=== PATIENT | female | born 2000 ===

== ENCOUNTER 2025-03-01 17:23 | Inpatient (IN) | payer OTHER ==
[2025-03-01] VITALS (8 sets, daily range): BP systolic 96–133; BP diastolic 52–80
[~2025-03-01] VITALS: Ht 170.2 cm; Wt 69.2 kg
[2025-03-01 17:36] LABS: Calcium, Ionized (POC) 1.26 mmol/L (1.10-1.46); Chloride (POC) 108 mmol/L (98-108); Creatinine (POC) 0.9 mg/dL (0.6-1.0); Glucose (ISTAT POC) >700 mg/dL (70-99); Hemoglobin (POC) 16.7 g/dL (12.0-16.0); Potassium (POC) 6.2 mmol/L (3.5-5.5); Sodium (POC) 134 mmol/L (135-148); Total CO2 (POC) 11 mmol/L (21-32)
[2025-03-01] MEDS ORDERED: INSULIN GL100 UNIT/2 SQ (17:39)
[2025-03-01] MEDS ORDERED: INSULIN LI100 UNIT/6 (17:39)
[2025-03-01] MEDS ORDERED: Insulin Human Regular 100 UNIT in NS 100 ML IV SCH (17:40)
[2025-03-01] MEDS ORDERED: NS 1,000 ML IV SCH (17:40)
[2025-03-01 17:43] LABS: Base Excess Venous -22.3 mmol/L; Bicarbonate Venous 10.4 mmol/L (24.0-30.0); PCO2 Venous 25.9 mmHg (38-42); pH Blood Venous 7.08 (7.34-7.37)
[2025-03-01 17:45] LABS: BASOPHILS ABSOLUTE AUTO 0.08 K/mm3 (0.00-0.23); BASOPHILS PERCENT AUTO 0 % (0-2); EOSINOPHILS PERCENT AUTO 0 % (0-6); Hemoglobin 15.9 g/dL (11.5-16.0); IMMATURE GRAN ABSOLUTE AUTO 0.21 K/mm3 (0.00-0.10); IMMATURE GRAN PERCENT AUTO 1 % (0-1); LYMPHOCYTES ABSOLUTE AUTO 0.58 K/mm3 (0.84-5.20); LYMPHOCYTES PERCENT AUTO 3 % (21-46); MONOCYTES ABSOLUTE AUTO 0.75 K/mm3 (0.16-1.47); MONOCYTES PERCENT AUTO 4 % (4-13); Mean Corpuscular HGB 30.4 pg (26.0-34.0); Mean Corpuscular HGB Conc 33.8 g/dL (31.5-36.5); Mean Corpuscular Volume 90 fL (80-100); Mean Platelet Volume 10.6 fL (9.1-12.4); NEUTROPHILS ABSOLUTE AUTO 17.84 K/mm3 (1.96-9.15); NEUTROPHILS PERCENT AUTO 92 % (41-73); Platelet Count 296 K/mm3 (150-400); RDW Coefficient Variation 12.3 % (11.7-14.2); RDW Standard Deviation 40.5 fL (35.1-46.3); Red Blood Cell Count 5.23 M/mm3 (3.80-5.20); White Blood Cell Count 19.46 K/mm3 (4.00-11.30)
[2025-03-01] MEDS ORDERED: Ondansetron HCl 2 MG / ML 2ML Vial IV ONE (17:50)
[2025-03-01 17:58] LABS: Magnesium, Blood 2.5 mg/dL (1.6-2.4); Phosphorus, Blood 7.2 mg/dL (2.5-4.9)
[2025-03-01 18:02] LABS: Source, Urine Clean Catch
[2025-03-01 18:07] LABS: Bilirubin, Urine Neg (Neg); Blood, Urine Neg (Neg); Glucose Qualitative, Urine 4+ (Neg); Ketones, Urine 4+ (Neg); Leukocyte Esterase, Urine Neg (Neg); Nitrite, Urine Neg (Neg); Protein, Urine 1+ (Neg); Urobilinogen, Urine NORM (Normal)
[2025-03-01 18:12] LABS: Color, Urine Pale Yellow (P-Yellow)
[2025-03-01 18:13] LABS: Appearance, Urine Hazy (Clear)
[2025-03-01 18:14] LABS: Bacteria Rare /hpf; Red Blood Cells, Urine 0-2 /hpf (0-2); Squamous Epithelial Cells Rare /hpf (Few); White Blood Cells, Urine 0-2 /hpf (0-5); Yeast/Fungi Urine Rare /hpf
[2025-03-01 18:16] LABS: Albumin, Blood 4.5 g/dL (3.4-5.0); Albumin/Globulin Ratio 1.3 (0.8-1.8); Bilirubin, Total 0.8 mg/dL (0.1-1.0); Bun/Creatinine Ratio 29.1 (12.0-20.0); Creatinine, Blood 0.76 mg/dL (0.40-1.00); Globulin, Blood 3.5 g/dL (2.2-4.0); Potassium, Blood 6.1 mmol/L (3.5-5.5)
[2025-03-01 18:38] LABS: Beta-hydroxybutyrate 72.7 mg/dL (0.2-2.8)
[2025-03-01] MEDS ORDERED: Metoclopramide HCl 5MG / ML 2ML Vial IV PRN (18:40)
[2025-03-01] MEDS ORDERED: Ondansetron HCl 2 MG / ML 2ML Vial IV PRN (18:45)
[2025-03-01] MEDS ORDERED: Lactated Ringer's 1,000 ML IV SCH ×2 (18:45→22:00)
[2025-03-01] MEDS ORDERED: Dextrose 50% 50 ML Syringe IV PRN (18:45)
[2025-03-01] MEDS ORDERED: Metoclopramide HCl 5MG / ML 2ML Vial IV ONE (19:00)
[2025-03-01 19:42] LABS: Glucose, Blood 607 mg/dL (70-99)
[2025-03-01 20:40] LABS: U Amphetamine Screen Not Detected; U Barbituate Screen Not Detected; U Benzodiazapine Screen Not Detected; U Buprenorphine Screen Not Detected; U Cannabinoids Screen DETECTED; U Cocaine Screen Not Detected; U Methadone Screen Not Detected; U Methamphetamine Screen Not Detected; U Opiates Screen Not Detected; U Oxycodone Screen Not Detected; U Phencyclidine Screen Not Detected
[2025-03-01] MEDS ORDERED: Acetaminophen 500 MG Tab PO PRN (21:40)
[2025-03-01 21:44] LABS: Bun/Creatinine Ratio 30.1 (12.0-20.0); Calcium, Blood 8.8 mg/dL (8.5-10.1); Creatinine, Blood 0.73 mg/dL (0.40-1.00); Potassium, Blood 4.9 mmol/L (3.5-5.5)
[2025-03-02] VITALS (22 sets, daily range): BP systolic 91–120; BP diastolic 52–91
[2025-03-02] MEDS ORDERED: [UNRECOGNIZED DRUG - OTHER] IV SCH (00:30)
[2025-03-02] MEDS ORDERED: DEXTROSE IV SCH (00:30)
[2025-03-02 01:41] LABS: Bun/Creatinine Ratio 23.9 (12.0-20.0); Calcium, Blood 8.8 mg/dL (8.5-10.1); Creatinine, Blood 0.71 mg/dL (0.40-1.00); Potassium, Blood 4.6 mmol/L (3.5-5.5)
--- NOTE | 2025-03-02 05:16 | NUR ---
SHIFT SUMMARY PT A/OX4, ABLE TO MAKE NEEDS KNOWN. USES CALL LIGHT APPROPRIATLY. ON ROOM AIR, SATS > 94%, DENIES SOB. ON SCIENTIFIC MANAGER, HR 70-80'S, BP SOFT BUT MAPS >65. PT ABLE TO TOLERATE PO INTAKE W/O N/V. UP TO TOILET W/ SBA FOR CORD MANAGEMENT. INSULIN INFUSING AT 9U/H TO LAC IV. NO ACUTE EVENTS, CALL LIGHT IN REACH.
[2025-03-02 05:19] LABS: Hemoglobin 12.8 g/dL (11.5-16.0); Mean Corpuscular HGB 30.9 pg (26.0-34.0); Mean Corpuscular HGB Conc 35.6 g/dL (31.5-36.5); Mean Corpuscular Volume 87 fL (80-100); Mean Platelet Volume 9.9 fL (9.1-12.4); Platelet Count 259 K/mm3 (150-400); RDW Coefficient Variation 12.6 % (11.7-14.2); Red Blood Cell Count 4.14 M/mm3 (3.80-5.20); White Blood Cell Count 20.01 K/mm3 (4.00-11.30)
[2025-03-02 05:43] LABS: Bun/Creatinine Ratio 25.5 (12.0-20.0); Calcium, Blood 8.4 mg/dL (8.5-10.1); Creatinine, Blood 0.59 mg/dL (0.40-1.00); Potassium, Blood 3.8 mmol/L (3.5-5.5)
[2025-03-02] MEDS ORDERED: Potassium Chloride 20 MEQ TabCR PO ONE ×2 (05:55→22:40)
--- NOTE | 2025-03-02 07:15 | NUR ---
ASSUMPTION OF CARE: ASSUMED CARE OF PATIENT. PATIENT SLEEPING; EASILY WOKEN WITH VERBAL STIMULI. DENIES NAUSEA/VOMITING AT THIS TIME. TOLERATING WATER AND ICE. VITALS ARE STABLE WITH MAPS >65. STABLE ON ROOM AIR. INSULIN GTT INFUSING AT 6.8 UNITS/HR. D5 1/2NS INFUSING AT 125 ML/HR. DENIES NEEDS AT THIS TIME.
[2025-03-02] MEDS ORDERED: Enoxaparin 40 MG/0.4 ML SYR SC SCH (09:00)
[2025-03-02 09:57] LABS: Bun/Creatinine Ratio 28.2 (12.0-20.0); Calcium, Blood 8.6 mg/dL (8.5-10.1); Creatinine, Blood 0.5 mg/dL (0.40-1.00); Potassium, Blood 3.9 mmol/L (3.5-5.5)
[2025-03-02] MEDS ORDERED: Insulin Glargine-Yfgn 100 Unit/mL 3 ML SYR SC ONE ×2 (11:00→22:10)
[2025-03-02] MEDS ORDERED: NS 1,000 ML IV ONE (12:33)
[2025-03-02] MEDS ORDERED: NS 1,000 ML IV SCH (12:50)
[2025-03-02 14:27] LABS: Bun/Creatinine Ratio 24.8 (12.0-20.0); Calcium, Blood 8.4 mg/dL (8.5-10.1); Creatinine, Blood 0.56 mg/dL (0.40-1.00)
[2025-03-02] MEDS ORDERED: Nicotine 7 MG PATCH TOP SCH (16:05)
[2025-03-02 17:28] LABS: Bun/Creatinine Ratio 24.4 (12.0-20.0); Calcium, Blood 8.5 mg/dL (8.5-10.1); Creatinine, Blood 0.57 mg/dL (0.40-1.00); Potassium, Blood 3.8 mmol/L (3.5-5.5)
--- NOTE | 2025-03-02 19:28 | NUR ---
SHIFT SUMMARY: NEURO: PATIENT ALERT AND ORIENTED X4. PATIENT STABLE ON FEET. DENIES NUMBNESS/TINGLING. PATIENT UP TO THE CHAIR FOR THE AFTERNOON. CARDIAC: PATIENTS VITALS STABLE WITH MAPS >65. HR WILL INCREASE TO LOW 100S WITH ACTIVITY AND QUICKLY RECOVER TO THE 80S WITH REST. RESPIRATORY: PATIENT STABLE ON ROOM AIR WITH SPO2 >96%. DENIES SHORTNESS OF BREATH WITH REST OR ACTIVITY. GI/: PATIENT TOLERATING PO INTAKE WITHOUT NAUSEA. INSULIN GTT CONTINUES WITH TITRATIONS Q1HR PER PROTOCOL AND CBG. NS AT 125ML/HR INFUSING. PSYCHSOCIAL: PATIENT CALM AND COOPERATIVE. PATIENT REPORTS THAT UNTIL SHE GETS HER CONTINUOUS GLUCOMETER SITUATION FIGURED OUT, SHE WILL PURCHASE AND USE A FINGERSTICK MODEL. PATIENT REPORTS THAT SHE NOW HAS INSULIN AT HOME. PATIENT'S SO AT BEDSIDE THIS AFTERNOON - HE IS ALSO CALM AND COOPERATIVE.
[2025-03-02 21:56] LABS: Beta-hydroxybutyrate 6.9 mg/dL (0.2-2.8); Bun/Creatinine Ratio 22.4 (12.0-20.0); Calcium, Blood 8.2 mg/dL (8.5-10.1); Creatinine, Blood 0.58 mg/dL (0.40-1.00); Potassium, Blood 3.3 mmol/L (3.5-5.5)
[2025-03-02] MEDS ORDERED: D5W-1/2NS 1,000 ML IV SCH (22:10)
[2025-03-03] VITALS: BP 112/69
[2025-03-03 01:00] VITALS: BP 96/57
[2025-03-03 01:46] LABS: Bun/Creatinine Ratio 19.2 (12.0-20.0); Calcium, Blood 8.1 mg/dL (8.5-10.1); Creatinine, Blood 0.52 mg/dL (0.40-1.00); Potassium, Blood 3.5 mmol/L (3.5-5.5)
[2025-03-03 03:58] LABS: BASOPHILS ABSOLUTE AUTO 0.03 K/mm3 (0.00-0.23); BASOPHILS PERCENT AUTO 0 % (0-2); EOSINOPHILS ABSOLUTE AUTO 0.05 K/mm3 (0.00-0.68); EOSINOPHILS PERCENT AUTO 1 % (0-6); Hematocrit 34.7 % (33.0-51.0); Hemoglobin 12.4 g/dL (11.5-16.0); IMMATURE GRAN ABSOLUTE AUTO 0.03 K/mm3 (0.00-0.10); IMMATURE GRAN PERCENT AUTO 0 % (0-1); LYMPHOCYTES ABSOLUTE AUTO 2.86 K/mm3 (0.84-5.20); LYMPHOCYTES PERCENT AUTO 32 % (21-46); MONOCYTES PERCENT AUTO 8 % (4-13); Mean Corpuscular HGB Conc 35.7 g/dL (31.5-36.5); Mean Corpuscular Volume 87 fL (80-100); Mean Platelet Volume 10.1 fL (9.1-12.4); NEUTROPHILS ABSOLUTE AUTO 5.34 K/mm3 (1.96-9.15); NEUTROPHILS PERCENT AUTO 59 % (41-73); Platelet Count 195 K/mm3 (150-400); RDW Coefficient Variation 12.9 % (11.7-14.2); RDW Standard Deviation 40.6 fL (35.1-46.3); White Blood Cell Count 9.01 K/mm3 (4.00-11.30)
[2025-03-03 04:16] LABS: Bun/Creatinine Ratio 17.8 (12.0-20.0); Creatinine, Blood 0.51 mg/dL (0.40-1.00); Potassium, Blood 3.8 mmol/L (3.5-5.5)
--- NOTE | 2025-03-03 05:17 | NUR ---
SHIFT SUMMARY PT A/OX4, MAKES NEEDS KNOWN. ON ROOM AIR, VSS. PT WAS TRANSITIONED OFF THE INSULIN DRIP AROUND 0115 THIS SHIFT. SC INSULIN ORDERS PLACED. TOLERATING PO INTAKE. PT WAS ABLE TO SLEEP TONIGHT, PARTNER AT BEDSIDE. PT ABLE TO AMBULATE AROUND THE ROOM WITH MINIMAL ASSISTANCE. NO ACUTE EVENTS. MED NO TELE STATUS. CALL LIGHT IN REACH.
[2025-03-03] MEDS ORDERED: Insulin Human Lispro 100 Units/ML 3ML Syringe SC SCH ×2 (07:30)
[2025-03-03 07:35] VITALS: BP 114/70
[2025-03-03] MEDS ORDERED: Insulin Glargine-Yfgn 100 Unit/mL 3 ML SYR SC SCH (09:00)
[2025-03-03 12:27] LABS: Bun/Creatinine Ratio 15.5 (12.0-20.0); Calcium, Blood 8.4 mg/dL (8.5-10.1); Creatinine, Blood 0.52 mg/dL (0.40-1.00)
[2025-03-03 12:55] VITALS: BP 123/76
--- NOTE | 2025-03-03 14:41 | NUR ---
UPDATE DISCHARGE INSTRUCTIONS PROVIDED TO PT. PT EDUCATED ON MEDICATIONS AND FOLLOW-UP. PT EDUCATED ON DKA. ALL QUESTIONS ANSWERED. PT DECLINED WHEELCHAIR AND WALKED OUT WITH RN AND SPOUSE.
== END 2025-03-03 14:42 | disposition home or self-care (01) | DRG 638 ==
LOC: ER 17:23 → ICUE 17:51 → ERHOLD 17:51 → ICUE 19:28
PROVIDERS: Emergency Medicine; Family Medicine; Internal Medicine; Nurse Practitioner Acute Care; ADMIT Internal Medicine
DX: E10.10 Type 1 diabetes mellitus with ketoacidosis without coma (principal); R65.10 Systemic inflammatory response syndrome (SIRS) of non-infectious origin without acute organ dysfunction; N83.201 Unspecified ovarian cyst, right side; E87.5 Hyperkalemia; G89.29 Other chronic pain; R10.9 Unspecified abdominal pain; F17.290 Nicotine dependence, other tobacco product, uncomplicated; T38.3X6A Underdosing of insulin and oral hypoglycemic [antidiabetic] drugs, initial encounter; Z91.138 Patient's unintentional underdosing of medication regimen for other reason; Z79.4 Long term (current) use of insulin
CPT/HCPCS: 36415; 74177; 76857; 80047; 80048; 80053; 81001; 81025; 82010; 82803; 82947; 83036; 83735; 84100; 85014; 85025; 85027; 93005; 93010; 96361; 96374; 99285-25; A9270; J1815; J2405; J7030; J7042; J7120; Q9967

== ENCOUNTER 2025-04-23 23:29 | Inpatient (IN) | payer OTHER ==
[~2025-04-23] VITALS: Ht 170.2 cm; Wt 68.8 kg
[~2025-04-23 23:29] MED LIST: INSULIN GL100 UNIT/2 SQ; INSULIN LI100 UNIT/6
[2025-04-24] VITALS (18 sets, daily range): BP systolic 90–128; BP diastolic 52–80
[2025-04-24 00:15] LABS: BASOPHILS ABSOLUTE AUTO 0.07 K/mm3 (0.00-0.23); BASOPHILS PERCENT AUTO 1 % (0-2); EOSINOPHILS ABSOLUTE AUTO 0.01 K/mm3 (0.00-0.68); EOSINOPHILS PERCENT AUTO 0 % (0-6); Hematocrit 43.5 % (33.0-51.0); Hemoglobin 15.0 g/dL (11.5-16.0); IMMATURE GRAN ABSOLUTE AUTO 0.14 K/mm3 (0.00-0.10); IMMATURE GRAN PERCENT AUTO 1 % (0-1); LYMPHOCYTES ABSOLUTE AUTO 1.68 K/mm3 (0.84-5.20); LYMPHOCYTES PERCENT AUTO 11 % (21-46); MONOCYTES ABSOLUTE AUTO 0.83 K/mm3 (0.16-1.47); MONOCYTES PERCENT AUTO 5 % (4-13); Mean Corpuscular HGB Conc 34.5 g/dL (31.5-36.5); Mean Corpuscular Volume 90 fL (80-100); NEUTROPHILS ABSOLUTE AUTO 12.70 K/mm3 (1.96-9.15); NEUTROPHILS PERCENT AUTO 82 % (41-73); NRBC ABSOLUTE 0.00 K/mm3 (0.00-0.02); NRBC Auto 0.0 /100 WBC (0.0-0.2); Platelet Count 304 K/mm3 (150-400); RDW Coefficient Variation 12.3 % (11.7-14.2); RDW Standard Deviation 40.3 fL (35.1-46.3)
[2025-04-24 00:17] LABS: pH Blood Venous 7.15 (7.34-7.37)
[2025-04-24 00:20] LABS: Source, Urine Clean Catch
[2025-04-24] MEDS ORDERED: NS 1,000 ML IV SCH ×2 (00:20→01:40)
[2025-04-24] MEDS ORDERED: Ondansetron HCl 2 MG / ML 2ML Vial IV ONE ×2 (00:20→01:40)
[2025-04-24 00:33] LABS: Bilirubin, Urine Neg (Neg); Glucose Qualitative, Urine 4+ (Neg); Ketones, Urine 4+ (Neg); Leukocyte Esterase, Urine Neg (Neg); Protein, Urine 1+ (Neg); Specific Gravity, Urine 1.025 (1.003-1.022); Urobilinogen, Urine NORM (Normal)
[2025-04-24 00:42] LABS: Alanine Aminotransfer (ALT/SGP 24.0 U/L (12-78); Albumin, Blood 4.1 g/dL (3.4-5.0); Albumin/Globulin Ratio 1.2 (0.8-1.8); Anion Gap 21.0 mmol/L (3-11); Aspartate Aminotrans (AST/SGOT 28.0 U/L (12-37); Bilirubin, Total 0.8 mg/dL (0.1-1.0); Blood Urea Nitrogen 16.0 mg/dL (8-24); CO2, Blood 9.0 mmol/L (21-32); Calcium, Blood 8.6 mg/dL (8.5-10.1); Chloride, Blood 105.0 mmol/L (98-108); Creatinine, Blood 0.55 mg/dL (0.40-1.00); Globulin, Blood 3.4 g/dL (2.2-4.0); Glucose, Blood 410.0 mg/dL (70-99); Potassium, Blood 5.0 mmol/L (3.5-5.5); Sodium, Blood 130.0 mmol/L (136-145); Total Protein, Blood 7.5 g/dL (6.4-8.2)
[2025-04-24 00:46] LABS: Color, Urine Other (P-Yellow)
[2025-04-24] MEDS ORDERED: Insulin Human Regular 100 UNIT in NS 100 ML IV SCH ×2 (00:50→06:25)
[2025-04-24] MEDS ORDERED: HYDROcodone 5-APAP 325 TAB PO PRN (02:55)
[2025-04-24 04:18] LABS: pH Blood Venous 7.08 (7.34-7.37)
[2025-04-24 04:34] LABS: Anion Gap 19.0 mmol/L (3-11); Blood Urea Nitrogen 15.0 mg/dL (8-24); CO2, Blood 8.0 mmol/L (21-32); Calcium, Blood 8.0 mg/dL (8.5-10.1); Chloride, Blood 114.0 mmol/L (98-108); Creatinine, Blood 0.68 mg/dL (0.40-1.00); Glucose, Blood 226.0 mg/dL (70-99); Potassium, Blood 4.4 mmol/L (3.5-5.5); Sodium, Blood 137.0 mmol/L (136-145)
[2025-04-24] MEDS ORDERED: D5W-1/2NS KCl 20mEq 1,000 ML IV SCH (04:35)
--- NOTE | 2025-04-24 06:15 | NUR ---
PT ADMITTED TO ICU 14 AT APPROX. 0420. PT AMBULATED FROM WHEELCHAIR TO BED WITH STAND BY ASSIST. PT IS A&OX4, REAVES WELL, ABLE TO MAKE NEEDS KNOWN, PERRLA, PT DENIES PAIN. PT IS ON RA WITH CLEAR BREATH SOUNDS HEARD YUKI THROUGHOUT. PT IS IN A NSR-ST, NO EDEMA NOTED. PT CURRENTLY NPO ON INSULIN GTT - TITRATIONS PER DEC. PT DENIES N/V AT THIS TIME. PT HAS NOT VOIDED SINCE ARRIVAL TO UNIT. PT WITH PIV X2. IVF/INSULIN GTT PER MAR. BMP/VBG Q4H X3. PT APPEARS IN NAD. VSS, BED ALARM ON FOR SAFETY, CALL LIGHT WITHIN REACH.
[2025-04-24 08:40] LABS: pH Blood Venous 7.20 (7.34-7.37)
[2025-04-24] MEDS ORDERED: Enoxaparin 40 MG/0.4 ML SYR SC SCH (09:00)
[2025-04-24 09:16] LABS: Anion Gap 11.0 mmol/L (3-11); Blood Urea Nitrogen 13.0 mg/dL (8-24); CO2, Blood 15.0 mmol/L (21-32); Calcium, Blood 7.9 mg/dL (8.5-10.1); Chloride, Blood 112.0 mmol/L (98-108); Creatinine, Blood 0.62 mg/dL (0.40-1.00); Glucose, Blood 205.0 mg/dL (70-99); Potassium, Blood 4.3 mmol/L (3.5-5.5); Sodium, Blood 134.0 mmol/L (136-145)
[2025-04-24 12:29] LABS: pH Blood Venous 7.26 (7.34-7.37)
[2025-04-24 12:53] LABS: Anion Gap 7.0 mmol/L (3-11); Blood Urea Nitrogen 9.0 mg/dL (8-24); CO2, Blood 18.0 mmol/L (21-32); Calcium, Blood 7.8 mg/dL (8.5-10.1); Chloride, Blood 113.0 mmol/L (98-108); Creatinine, Blood 0.59 mg/dL (0.40-1.00); Glucose, Blood 167.0 mg/dL (70-99); Potassium, Blood 3.8 mmol/L (3.5-5.5); Sodium, Blood 134.0 mmol/L (136-145)
[2025-04-24 16:57] LABS: Anion Gap 1.0 mmol/L (3-11); Blood Urea Nitrogen 7.0 mg/dL (8-24); CO2, Blood 21.0 mmol/L (21-32); Calcium, Blood 8.1 mg/dL (8.5-10.1); Chloride, Blood 113.0 mmol/L (98-108); Creatinine, Blood 0.57 mg/dL (0.40-1.00); Glucose, Blood 171.0 mg/dL (70-99); Potassium, Blood 4.8 mmol/L (3.5-5.5); Sodium, Blood 130.0 mmol/L (136-145)
[2025-04-24] MEDS ORDERED: Insulin Glargine-Yfgn 100 Unit/mL 3 ML SYR SC SCH (18:00)
[2025-04-24 18:19] LABS: pH Blood Venous 7.27 (7.34-7.37)
[2025-04-24] MEDS ORDERED: Insulin Human Lispro 100 Units/ML 3ML Syringe SC SCH (21:00)
[2025-04-25 00:27] VITALS: BP 116/60
[2025-04-25 03:48] LABS: BASOPHILS ABSOLUTE AUTO 0.04 K/mm3 (0.00-0.23); BASOPHILS PERCENT AUTO 1 % (0-2); EOSINOPHILS ABSOLUTE AUTO 0.09 K/mm3 (0.00-0.68); EOSINOPHILS PERCENT AUTO 1 % (0-6); Hematocrit 36.6 % (33.0-51.0); Hemoglobin 13.2 g/dL (11.5-16.0); IMMATURE GRAN ABSOLUTE AUTO 0.04 K/mm3 (0.00-0.10); IMMATURE GRAN PERCENT AUTO 1 % (0-1); LYMPHOCYTES ABSOLUTE AUTO 3.05 K/mm3 (0.84-5.20); LYMPHOCYTES PERCENT AUTO 36 % (21-46); MONOCYTES ABSOLUTE AUTO 0.60 K/mm3 (0.16-1.47); MONOCYTES PERCENT AUTO 7 % (4-13); Mean Corpuscular HGB Conc 36.1 g/dL (31.5-36.5); Mean Corpuscular Volume 89 fL (80-100); NEUTROPHILS ABSOLUTE AUTO 4.58 K/mm3 (1.96-9.15); NEUTROPHILS PERCENT AUTO 55 % (41-73); NRBC ABSOLUTE 0.00 K/mm3 (0.00-0.02); NRBC Auto 0.0 /100 WBC (0.0-0.2); Platelet Count 231 K/mm3 (150-400); RDW Coefficient Variation 12.7 % (11.7-14.2); RDW Standard Deviation 41.4 fL (35.1-46.3)
[2025-04-25 04:06] LABS: Anion Gap 7.0 mmol/L (3-11); Blood Urea Nitrogen 7.0 mg/dL (8-24); CO2, Blood 24.0 mmol/L (21-32); Calcium, Blood 8.1 mg/dL (8.5-10.1); Chloride, Blood 110.0 mmol/L (98-108); Creatinine, Blood 0.68 mg/dL (0.40-1.00); Glucose, Blood 237.0 mg/dL (70-99); Potassium, Blood 4.1 mmol/L (3.5-5.5); Sodium, Blood 137.0 mmol/L (136-145)
--- NOTE | 2025-04-25 05:37 | NUR ---
PT TRANSFER FROM ICU 14 THIS RN WENT TO ICU AND ASSISTED PT TRANSFER TO ROOM 305. PT INDEPENDENT AND ABLE TO WALK FOR TRANSFER TO MED FLOOR 305. ARRIVED TO ROOM APROX 0525. PT A/OX4. ADMITTED FOR DKA WHICH HAS RESOLVED. PER REPORT FROM ICU NURSE PLAN FOR DISHARGE TODAY. PT IS SET ON DICHARGE TO BE HOME FOR THE HOLIDAY. ASSESSMENT REIVEWED AND THIS RN AGREES WITH SHIFT ASSESSMENT. ALL PT'S PERSONAL BELONGINGS PLACED IN BAG AND TRANSFERED TO NEW ROOM WITH THE PT.
[2025-04-25 08:10] VITALS: BP 116/76
--- NOTE | 2025-04-25 13:11 | NUR ---
DISCHARGE: PT D/C @1245 INDEPENDENTLY WITH ETHEL. IV IN LWR AND LAC REMOVED BY THIS RN W/O COMPLICATIONS. PT AWARE TO CALL MONDAY TO MAKE FOLLOW-UP APPOINTMENT WITH PCP. EDUCATION FOR DKA PROVIDED. NO NEW MEDICATIONS. NO QUESTIONS AT TIME OF DISCHARGE.
== END 2025-04-25 12:48 | disposition home or self-care (01) | DRG 639 ==
LOC: ER 23:29 → ICUE 23:30 → MEDS 04-25 05:12
PROVIDERS: Emergency Medicine; Internal Medicine; ADMIT Family Medicine
DX: E10.10 Type 1 diabetes mellitus with ketoacidosis without coma (principal); T38.3X6A Underdosing of insulin and oral hypoglycemic [antidiabetic] drugs, initial encounter; F17.290 Nicotine dependence, other tobacco product, uncomplicated; E86.0 Dehydration; D72.829 Elevated white blood cell count, unspecified; R51.9 Headache, unspecified; Z91.138 Patient's unintentional underdosing of medication regimen for other reason; Z79.4 Long term (current) use of insulin
CPT/HCPCS: 36415; 80048; 80053; 82803; 82947; 84703; 85025; 96361; 96374; 96376; 99285; A9270; G0378; J1815; J2405; J7030

== ENCOUNTER 2025-05-20 23:10 | Emergency (ER) | payer OTHER ==
[~2025-05-20] VITALS: Ht 167.6 cm; Wt 70.8 kg
[~2025-05-20 23:10] MED LIST changes: -INSULIN LI100 UNIT/6; +INSULIN LI100 UNIT/6 SC
[2025-05-20] MEDS ORDERED: Ondansetron HCl 2 MG / ML 2ML Vial IV ONE (23:20)
[2025-05-20] MEDS ORDERED: NS 1,000 ML IV SCH (23:20)
[2025-05-20 23:46] LABS: BASOPHILS ABSOLUTE AUTO 0.08 K/mm3 (0.00-0.23); BASOPHILS PERCENT AUTO 1 % (0-2); EOSINOPHILS ABSOLUTE AUTO 0.03 K/mm3 (0.00-0.68); EOSINOPHILS PERCENT AUTO 0 % (0-6); Hematocrit 42.9 % (33.0-51.0); Hemoglobin 15.1 g/dL (11.5-16.0); IMMATURE GRAN ABSOLUTE AUTO 0.05 K/mm3 (0.00-0.10); IMMATURE GRAN PERCENT AUTO 1 % (0-1); LYMPHOCYTES ABSOLUTE AUTO 2.21 K/mm3 (0.84-5.20); LYMPHOCYTES PERCENT AUTO 23 % (21-46); MONOCYTES ABSOLUTE AUTO 0.84 K/mm3 (0.16-1.47); MONOCYTES PERCENT AUTO 9 % (4-13); Mean Corpuscular HGB Conc 35.2 g/dL (31.5-36.5); Mean Corpuscular Volume 92 fL (80-100); NEUTROPHILS ABSOLUTE AUTO 6.22 K/mm3 (1.96-9.15); NEUTROPHILS PERCENT AUTO 66 % (41-73); NRBC ABSOLUTE 0.00 K/mm3 (0.00-0.02); NRBC Auto 0.0 /100 WBC (0.0-0.2); Platelet Count 264 K/mm3 (150-400); RDW Coefficient Variation 12.1 % (11.7-14.2); RDW Standard Deviation 40.8 fL (35.1-46.3)
[2025-05-21 00:07] LABS: Alanine Aminotransfer (ALT/SGP 80.0 U/L (12-78); Albumin, Blood 3.7 g/dL (3.4-5.0); Albumin/Globulin Ratio 1.2 (0.8-1.8); Anion Gap 11.0 mmol/L (3-11); Aspartate Aminotrans (AST/SGOT 35.0 U/L (12-37); Bilirubin, Total 0.7 mg/dL (0.1-1.0); Blood Urea Nitrogen 16.0 mg/dL (8-24); CO2, Blood 23.0 mmol/L (21-32); Calcium, Blood 9.5 mg/dL (8.5-10.1); Chloride, Blood 102.0 mmol/L (98-108); Creatinine, Blood 0.54 mg/dL (0.40-1.00); Globulin, Blood 3.2 g/dL (2.2-4.0); Glucose, Blood 171.0 mg/dL (70-99); Magnesium, Blood 2.1 mg/dL (1.6-2.4); Potassium, Blood 3.9 mmol/L (3.5-5.5); Sodium, Blood 132.0 mmol/L (136-145); Total Protein, Blood 6.9 g/dL (6.4-8.2)
[2025-05-21] MEDS ORDERED: DICY20 PO (01:46)
[2025-05-21] MEDS ORDERED: ONDA4 PO (01:46)
[2025-05-21 03:02] LABS: Source, Urine Clean Catch
[2025-05-21 03:07] LABS: Bilirubin, Urine Neg (Neg); Glucose Qualitative, Urine 4+ (Neg); Ketones, Urine 4+ (Neg); Leukocyte Esterase, Urine Neg (Neg); Protein, Urine 2+ (Neg); Specific Gravity, Urine 1.030 (1.003-1.022); Urobilinogen, Urine 1+ (Normal)
[2025-05-21 03:20] LABS: Color, Urine Amber (P-Yellow)
[2025-05-21 03:23] LABS: Red Blood Cells, Urine 0-2 /hpf (0-2); White Blood Cells, Urine 0-2 /hpf (0-5)
[2025-05-22] MEDS ORDERED: ONDA4 PO (18:30)
== END 2025-05-21 03:41 | disposition home or self-care (01) ==
LOC: ER 23:10
PROVIDERS: Emergency Medicine
DX: E10.65 Type 1 diabetes mellitus with hyperglycemia (principal); R10.31 Right lower quadrant pain; F17.290 Nicotine dependence, other tobacco product, uncomplicated; Z79.4 Long term (current) use of insulin
CPT/HCPCS: 80053; 81001; 81025; 82947; 83690; 83735; 85025; 96361; 96374-59; 99285-25; A9270; J2405; J7030

== ENCOUNTER 2025-05-21 13:29 | Inpatient (IN) | payer OTHER ==
[~2025-05-21] VITALS: Ht 162.6 cm; Wt 68.7 kg
[~2025-05-21 13:29] MED LIST changes: +DICY20 PO; +ONDA4 PO
[2025-05-21 14:00] LABS: BASOPHILS ABSOLUTE AUTO 0.08 K/mm3 (0.00-0.23); BASOPHILS PERCENT AUTO 1 % (0-2); EOSINOPHILS ABSOLUTE AUTO 0.01 K/mm3 (0.00-0.68); EOSINOPHILS PERCENT AUTO 0 % (0-6); Hematocrit 45.9 % (33.0-51.0); Hemoglobin 15.8 g/dL (11.5-16.0); IMMATURE GRAN ABSOLUTE AUTO 0.12 K/mm3 (0.00-0.10); IMMATURE GRAN PERCENT AUTO 1 % (0-1); LYMPHOCYTES ABSOLUTE AUTO 1.28 K/mm3 (0.84-5.20); LYMPHOCYTES PERCENT AUTO 8 % (21-46); MONOCYTES ABSOLUTE AUTO 0.56 K/mm3 (0.16-1.47); MONOCYTES PERCENT AUTO 4 % (4-13); Mean Corpuscular HGB Conc 34.4 g/dL (31.5-36.5); Mean Corpuscular Volume 92 fL (80-100); NEUTROPHILS ABSOLUTE AUTO 13.53 K/mm3 (1.96-9.15); NEUTROPHILS PERCENT AUTO 87 % (41-73); NRBC ABSOLUTE 0.00 K/mm3 (0.00-0.02); NRBC Auto 0.0 /100 WBC (0.0-0.2); Platelet Count 343 K/mm3 (150-400); RDW Coefficient Variation 12.7 % (11.7-14.2); RDW Standard Deviation 42.4 fL (35.1-46.3)
[2025-05-21] MEDS ORDERED: Ondansetron HCl 2 MG / ML 2ML Vial IV ONE (14:05)
[2025-05-21 15:03] LABS: Source, Urine Clean Catch
[2025-05-21 15:03] LABS: pH Blood Venous 7.12 (7.34-7.37)
[2025-05-21 15:09] LABS: Bilirubin, Urine Neg (Neg); Glucose Qualitative, Urine 4+ (Neg); Ketones, Urine 4+ (Neg); Leukocyte Esterase, Urine Neg (Neg); Protein, Urine 1+ (Neg); Specific Gravity, Urine 1.025 (1.003-1.022); Urobilinogen, Urine NORM (Normal)
[2025-05-21 15:17] LABS: Color, Urine Pale Yellow (P-Yellow)
[2025-05-21 17:01] LABS: Alanine Aminotransfer (ALT/SGP 64.0 U/L (12-78); Albumin, Blood 3.7 g/dL (3.4-5.0); Albumin/Globulin Ratio 1.1 (0.8-1.8); Bilirubin, Total 0.8 mg/dL (0.1-1.0); Blood Urea Nitrogen 17.0 mg/dL (8-24); Calcium, Blood 8.6 mg/dL (8.5-10.1); Chloride, Blood 100.0 mmol/L (98-108); Creatinine, Blood 0.57 mg/dL (0.40-1.00); Globulin, Blood 3.3 g/dL (2.2-4.0); Glucose, Blood 397.0 mg/dL (70-99); Sodium, Blood 126.0 mmol/L (136-145); Total Protein, Blood 7.0 g/dL (6.4-8.2)
[2025-05-21 17:02] LABS: Anion Gap 26.0 mmol/L (3-11); Aspartate Aminotrans (AST/SGOT 61.0 U/L (12-37); CO2, Blood 7.0 mmol/L (21-32)
[2025-05-21 17:03] LABS: Potassium, Blood 6.9 mmol/L (3.5-5.5)
[2025-05-21] MEDS ORDERED: Insulin Human Regular 100 UNIT in NS 100 ML IV SCH (17:10)
[2025-05-21] MEDS ORDERED: NS 1,000 ML IV SCH ×3 (17:10→18:45)
[2025-05-21 18:41] LABS: Glucose, Blood 400.0 mg/dL (70-99); Potassium, Blood 5.6 mmol/L (3.5-5.5)
[2025-05-21] MEDS ORDERED: Metoclopramide HCl 5MG / ML 2ML Vial IV ONE (18:45)
[2025-05-21] MEDS ORDERED: Ondansetron HCl 2 MG / ML 2ML Vial IV PRN (18:45)
[2025-05-21] MEDS ORDERED: Metoclopramide HCl 5MG / ML 2ML Vial IV PRN (18:45)
[2025-05-21] MEDS ORDERED: Ketorolac Tromethamine 30mg Vial IV ONE (19:00)
[2025-05-21 21:42] LABS: Anion Gap 24.0 mmol/L (3-11); Blood Urea Nitrogen 14.0 mg/dL (8-24); CO2, Blood 6.0 mmol/L (21-32); Calcium, Blood 8.6 mg/dL (8.5-10.1); Chloride, Blood 107.0 mmol/L (98-108); Creatinine, Blood 0.7 mg/dL (0.40-1.00); Glucose, Blood 383.0 mg/dL (70-99); Potassium, Blood 6.2 mmol/L (3.5-5.5); Sodium, Blood 131.0 mmol/L (136-145)
[2025-05-21 22:00] VITALS: BP 130/71
[2025-05-21 22:30] VITALS: BP 126/69
[2025-05-21] MEDS ORDERED: NS 1,000 ML IV ONE (22:30)
[2025-05-21 23:00] VITALS: BP 126/75
[2025-05-21] MEDS ORDERED: D5W-1/2NS 1,000 ML IV SCH (23:20)
[2025-05-21 23:30] VITALS: BP 112/60
[2025-05-21] MEDS ORDERED: D5W-1/2NS KCl 20mEq 1,000 ML IV SCH (23:30)
[2025-05-22] VITALS (39 sets, daily range): BP systolic 84–119; BP diastolic 52–88
[2025-05-22 00:34] LABS: pH Blood Venous 7.07 (7.34-7.37)
[2025-05-22 01:18] LABS: Anion Gap 20.0 mmol/L (3-11); Blood Urea Nitrogen 12.0 mg/dL (8-24); CO2, Blood 8.0 mmol/L (21-32); Calcium, Blood 7.8 mg/dL (8.5-10.1); Chloride, Blood 111.0 mmol/L (98-108); Creatinine, Blood 0.66 mg/dL (0.40-1.00); Glucose, Blood 178.0 mg/dL (70-99); Potassium, Blood 4.6 mmol/L (3.5-5.5); Sodium, Blood 134.0 mmol/L (136-145)
[2025-05-22] MEDS ORDERED: D5W-1/2NS 1,000 ML IV SCH (02:00)
--- NOTE | 2025-05-22 05:03 | NUR ---
SHIFT SUMMARY PT A/OX4, CALLS APPROPRIATLY. ON ROOM AIR, VSS. NSR-SINUS TACH W/ ACTIVITY. PT ON INSULIN GTT AT 0.9U AND D5-1/2NS AT 150ML/H. TOLERATING ICE CHIPS. UP TO THE TOILET WITH MINIMAL ASSISTANCE. PT C/O HEADACHE, TYLENOL PRN WITH RELIEF. TMAX 99.4. NO ACUTE EVENTS. CALL LIGHT IN REACH.
[2025-05-22 05:11] LABS: Hematocrit 36.5 % (33.0-51.0); Hemoglobin 12.6 g/dL (11.5-16.0); Mean Corpuscular HGB Conc 34.5 g/dL (31.5-36.5); Mean Corpuscular Volume 91 fL (80-100); NRBC ABSOLUTE 0.00 K/mm3 (0.00-0.02); NRBC Auto 0.0 /100 WBC (0.0-0.2); Platelet Count 258 K/mm3 (150-400); RDW Coefficient Variation 12.7 % (11.7-14.2); RDW Standard Deviation 41.9 fL (35.1-46.3)
[2025-05-22 05:43] LABS: Anion Gap 13.0 mmol/L (3-11); Blood Urea Nitrogen 10.0 mg/dL (8-24); CO2, Blood 11.0 mmol/L (21-32); Calcium, Blood 7.7 mg/dL (8.5-10.1); Chloride, Blood 113.0 mmol/L (98-108); Creatinine, Blood 0.59 mg/dL (0.40-1.00); Glucose, Blood 189.0 mg/dL (70-99); Potassium, Blood 4.1 mmol/L (3.5-5.5); Sodium, Blood 133.0 mmol/L (136-145)
[2025-05-22] MEDS ORDERED: NS 250 ML IV PRN (08:40)
[2025-05-22] MEDS ORDERED: Enoxaparin 40 MG/0.4 ML SYR SC SCH (09:00)
[2025-05-22 09:13] LABS: Anion Gap 11.0 mmol/L (3-11); Blood Urea Nitrogen 8.0 mg/dL (8-24); CO2, Blood 16.0 mmol/L (21-32); Calcium, Blood 8.2 mg/dL (8.5-10.1); Chloride, Blood 111.0 mmol/L (98-108); Creatinine, Blood 0.55 mg/dL (0.40-1.00); Glucose, Blood 183.0 mg/dL (70-99); Potassium, Blood 3.7 mmol/L (3.5-5.5); Sodium, Blood 134.0 mmol/L (136-145)
[2025-05-22 13:29] LABS: Anion Gap 8.0 mmol/L (3-11); Blood Urea Nitrogen 6.0 mg/dL (8-24); CO2, Blood 18.0 mmol/L (21-32); Calcium, Blood 8.3 mg/dL (8.5-10.1); Chloride, Blood 112.0 mmol/L (98-108); Creatinine, Blood 0.49 mg/dL (0.40-1.00); Glucose, Blood 165.0 mg/dL (70-99); Potassium, Blood 3.7 mmol/L (3.5-5.5); Sodium, Blood 134.0 mmol/L (136-145)
[2025-05-22 17:44] LABS: Anion Gap 10.0 mmol/L (3-11); Blood Urea Nitrogen 5.0 mg/dL (8-24); CO2, Blood 18.0 mmol/L (21-32); Calcium, Blood 8.3 mg/dL (8.5-10.1); Chloride, Blood 110.0 mmol/L (98-108); Creatinine, Blood 0.52 mg/dL (0.40-1.00); Glucose, Blood 186.0 mg/dL (70-99); Potassium, Blood 3.7 mmol/L (3.5-5.5); Sodium, Blood 134.0 mmol/L (136-145)
[2025-05-22] MEDS ORDERED: ONDA4 PO (18:30)
[2025-05-22] MEDS ORDERED: Insulin Glargine-Yfgn 100 Unit/mL 3 ML SYR SC ONE (18:45)
--- NOTE | 2025-05-22 18:54 | NUR ---
SHIFT SUMMARY: NEURO: PATIENT DENIED NUMBNESS/TINGLING THROUGHOUT THE SHIFT. PATIENT STEADY ON HER FEET. PATIENT UP TO THE TOILET WITHOUT DIFFICULTY. PATIENT REPORTED HEADACHE DURING THE SHIFT. MEDICATED PER PRN TYLENOL AND PROVIDED WITH A DARK AND QUIET ENVIRONMENT. PATIENT REPORTED THAT LACK OF SOLID FOOD, LACK OF CAFFIENE AND LACK OF NICOTINE MIGHT BE CONTRIBUTING FACTORS. OBTAINED ORDER FOR NICOTINE PATCH AND PROVIDED WITH DIET PEPSI. CARDIAC: PATIENT'S VITALS STABLE WITH MAPS >65. HR IN THE 90S AT REST AND 100S WITH ACTIVITY. PATIENT DENIED DIZZINESS AT REST OR WITH ACTIVITY. RESPIRATORY: PATIENT STABLE ON ROOM AIR WITH SPO2 >96%. DENIES SHORTNESS OF BREATH AT REST OR WITH ACTIVITY. GI/: PATIENT TOLERATED CLEARS THROUGHOUT THE SHIFT WITH NO NAUSEA OR ABDOMINAL DISCOMFORT. NO BOWEL MOVEMENT THIS SHIFT. VOIDING WITHOUT DIFFICULTY. URINE IS YELLOW AND WITHOUT FOUL ODOR. PSYCHSOCIAL: PATIENT IS CALM AND COOPERATIVE IN THE ROOM. PATIENT REPORTED THAT LACK OF RELIABLE TRANSPORT HAS MADE HER MISS APPOINTMENTS. SHE REPORTED THAT SHE LOST THE APPLICATION FOR MEDICAL TRANSPORT IN [place]. MESSAGE LEFT WITH CARE MANAGEMENT. PATIENT REPORTED THAT SHE HAS HAD DIFFICULTY ACQUIRING A CONTINUOUS GLUCOSE MONITOR THAT IS RELIABLE. ENCOURAGED PATIENT TO FOLLOW UP WITH DR. ARMSTRONG AND FORREST SO THEY CAN HELP HER NAVIGATE THIS ISSUE. PATIENT REQUESTING A STRIP RX AT DISCHARGE FOR HER GLUCOMETER. NOTIFIED RAKESH AND BINU RN. PATIENT'S FIANCE AT BEDSIDE. HE IS ENCOURAGING OF THE PATIENT, ASKING APPROPRIATE QUESTIONS AND HELPING PATIENT WITH MAKING DECISIONS.
--- NOTE | 2025-05-22 20:35 | NUR ---
ASSUMPTION OF CARE CARE OF PT ASSUMED FOLLOWING BEDSIDE SHIFT REPORT FROM DAY RN. PT LYING IN BED IN NO APPARENT DISTRESS. AFEBRILE. VSS WITH HR SLIGHTLY ELEVATED 104. ALERT AND ORIENTED TO ALL. INSULING INFUSING AT 0.53 UNITS/HR. D51/2NS INFUSING AT 150ML/HR. POC GLUCOSES HAVE BEEN UNDER 200 FOR SEVERAL HOURS AND GAP HAS BEEN CLOSED, HOWEVER, CO2 REMAINS LOW, HENCE PT WELL RECEIVE FIRST DOSE OF LONG ACTING BUT WILL REMAIN ON INSULIN GTT FOR NOW. PT LEFT WITH CALL MARIANO SAXENA AND ЕЛЕНА DAVENPORT, IN THE ROOM. WILL REVIEW AND CONTINUE PLAN OF CARE.
[2025-05-22 21:03] LABS: Anion Gap 8.0 mmol/L (3-11); Blood Urea Nitrogen 4.0 mg/dL (8-24); CO2, Blood 20.0 mmol/L (21-32); Calcium, Blood 8.2 mg/dL (8.5-10.1); Chloride, Blood 110.0 mmol/L (98-108); Creatinine, Blood 0.46 mg/dL (0.40-1.00); Glucose, Blood 192.0 mg/dL (70-99); Potassium, Blood 3.9 mmol/L (3.5-5.5); Sodium, Blood 134.0 mmol/L (136-145)
--- NOTE | 2025-05-22 22:42 | NUR ---
UPDATE: PT C/O SINUS CONGESTION AND NON PRODUCTIVE COUGH THAT BEGAN THIS EVENING. NO SOB. WILL MONITOR. PT IS CRAVING HER VAPE. ASKS FOR THE NICOTINE PATCH TO BE REMOVED. WILL INQUIRE ABOUT OPTION 2, AND THE FINAL OPTION, AT THIS HOSPITAL, NICOTINE GUM. PATCH WAS REMOVED.
[2025-05-23] VITALS: BP 97/61
[2025-05-23 01:00] VITALS: BP 110/93
[2025-05-23 01:03] LABS: Anion Gap 6.0 mmol/L (3-11); Blood Urea Nitrogen 3.0 mg/dL (8-24); CO2, Blood 22.0 mmol/L (21-32); Calcium, Blood 8.0 mg/dL (8.5-10.1); Chloride, Blood 113.0 mmol/L (98-108); Creatinine, Blood 0.52 mg/dL (0.40-1.00); Glucose, Blood 179.0 mg/dL (70-99); Potassium, Blood 3.3 mmol/L (3.5-5.5); Sodium, Blood 138.0 mmol/L (136-145)
[2025-05-23 02:00] VITALS: BP 104/65
--- NOTE | 2025-05-23 02:20 | NUR ---
UPDATE ON LABS AND INSULIN DRIP 0030 BMP SHOWED CONTINUED CLOSURE OF ANION GAP, 6, AND A NORMAL CO2, 22. PROVIDER WAS CALLED AND ORDER PLACED TO STOP INSULIN AND FLUIDS AND TO PLACE ORDER FOR BASAL INSULIN, 30 UNITS BID, WITH HIGH ACHS COVERAGE. PT WAS COMPLAINING OF SEVERE RESTLESSNESS AND PROVIDER ORDERED ONE TIME DOSE OF ATIVAN, WHICH MIGHT HELP PT NAUSEA, WHICH WAS ALSO TREATED WITH REGLAN. PT SWITCHED TO MED NO TELE STATUS.
--- NOTE | 2025-05-23 03:00 | NUR ---
UPDATE: PT REMOVED FROM TELE AND TRANSFERRED TO MEDICAL
--- NOTE | 2025-05-23 06:25 | NUR ---
SHIFT SUMMARY PT LYING IN BED SLEEPING. LAB IS HERE TO DRAW BMP. PT AWAKES TO VOICE AND IS ALERT AND ORIENTED TO ALL. PT DENIES EXTREMITY NUMBNESS OR TINGLING. NEUROVASCULAR STATUS IS INTACT WELL GROSS CRANIAL NERVE FUNCTION. AFEBRILE. TMAX 98.4. RIGHT SIDED HEADACHE WAS TREATED WITH MODERATE SUCCESS WITH TYLENOL. SINUS RHYTHM WITH RATE IN 70'S WHILE SLEEPING AND LOW 100'S WHEN AWAKE. BP STABLE (TELE IS OFF OF 0300). NO CHEST PAIN/PRESSURE, SOB. LUNGS SOUNDS ARE DIM AND SCATTERED COARSE. NO AB PAIN. PT DID HAVE ONE EPISODE OF NAUSEA THAT WAS TREATED WITH REGLAN AND THEN LATER PO ATIVAN THAT WAS PRESCRIBED FOR SEVERE RESTLESSNESS/ANXIETY. NO BM. NO VOMIT. PT HAD GOOD URINE OUTPUT OF YELLOW URINE. INSULIN TURNED OFF AT 0245. 30 UNITS OF INSULIN GLARGINE WERE ADMINISTERED LAST NIGHT AT 2030. 30 UNITS WILL BE ADMIN BID ALOND WITH HIGH SLIDING SCALE COVERAGE WITH SHORT ACTING. LABS TO BE DRAWN AT 0630 AND EVERY 4 HOURS AFTER. PT IS SALINE LOCKED. BEDSIDE SHIFT REPORT [facility].
[2025-05-23 07:06] LABS: BASOPHILS ABSOLUTE AUTO 0.02 K/mm3 (0.00-0.23); BASOPHILS PERCENT AUTO 0 % (0-2); EOSINOPHILS ABSOLUTE AUTO 0.06 K/mm3 (0.00-0.68); EOSINOPHILS PERCENT AUTO 1 % (0-6); Hematocrit 37.1 % (33.0-51.0); Hemoglobin 13.0 g/dL (11.5-16.0); IMMATURE GRAN ABSOLUTE AUTO 0.04 K/mm3 (0.00-0.10); IMMATURE GRAN PERCENT AUTO 1 % (0-1); LYMPHOCYTES ABSOLUTE AUTO 2.08 K/mm3 (0.84-5.20); LYMPHOCYTES PERCENT AUTO 26 % (21-46); MONOCYTES ABSOLUTE AUTO 0.78 K/mm3 (0.16-1.47); MONOCYTES PERCENT AUTO 10 % (4-13); Mean Corpuscular HGB Conc 35.0 g/dL (31.5-36.5); Mean Corpuscular Volume 89 fL (80-100); NEUTROPHILS ABSOLUTE AUTO 5.12 K/mm3 (1.96-9.15); NEUTROPHILS PERCENT AUTO 63 % (41-73); NRBC ABSOLUTE 0.00 K/mm3 (0.00-0.02); NRBC Auto 0.0 /100 WBC (0.0-0.2); Platelet Count 237 K/mm3 (150-400); RDW Coefficient Variation 12.9 % (11.7-14.2); RDW Standard Deviation 42.4 fL (35.1-46.3)
[2025-05-23 07:23] LABS: Anion Gap 9.0 mmol/L (3-11); Blood Urea Nitrogen 3.0 mg/dL (8-24); CO2, Blood 20.0 mmol/L (21-32); Calcium, Blood 7.9 mg/dL (8.5-10.1); Chloride, Blood 114.0 mmol/L (98-108); Creatinine, Blood 0.51 mg/dL (0.40-1.00); Glucose, Blood 53.0 mg/dL (70-99); Potassium, Blood 3.0 mmol/L (3.5-5.5); Sodium, Blood 140.0 mmol/L (136-145)
[2025-05-23] MEDS ORDERED: Insulin Human Lispro 100 Units/ML 3ML Syringe SC SCH ×3 (07:30→11:30)
[2025-05-23 07:44] VITALS: BP 104/63
[2025-05-23] MEDS ORDERED: Insulin Glargine-Yfgn 100 Unit/mL 3 ML SYR SC SCH ×2 (09:00)
--- NOTE | 2025-05-23 09:34 | NUR ---
ASSUMPTION OF CARE ASSUMED CARE OF PATIENT AT APPROXIMATELY 0700. PT RESTING IN BED, SLEEPING BUT AROUSABLE. PT ORIENTED X4, ANSWERS QUESTIONS APPROPRIATLEY, FOLLOWS DIRECTION WHEN PROMPTED AND IS ABLE TO MAKE HER NEEDS KNOWN. PT MOVES EXTREMITIES EQUALLY BILATERALLY, AMBULATES IN THE ROOM INDEPENDENTLY. PT BLOOD SUGAR THIS AM WAS 58, TWO APPLE JUICES GIVEN BY NOC RN. THIS RN PLACED ORDERS FOR HYPOGLYCEMIA PROTOCOL AND RECHECKED BLOOD SUGAR WHICH SHOWED 84. CALL PLACED TO DR. GARCIA INFORMING HIM OF THIS, ORDERS RECEIVED. PT MEDICAL FLOOR NO TELEMETRY STATUS. PT DENIES CP/PRESSURE, MAP >65. PT ON RA, OXYGEN SATURATION >95% ON SPOT CHECK. ABDOMEN SOFT, BOWEL TONES ACTIVE THROUGHOUT, PT DENIES N/V. PT AMBULATES TO BEDSIDE TOILET TO VOID. PIV IN PLACE TO LAC SL. BED IN LOWEST POSITION, CALL LIGHT WITHIN REACH, CARE CONTINUES.
[2025-05-23 11:12] VITALS: BP 122/92
[2025-05-23 11:53] LABS: Anion Gap 4.0 mmol/L (3-11); Blood Urea Nitrogen 3.0 mg/dL (8-24); CO2, Blood 23.0 mmol/L (21-32); Calcium, Blood 8.3 mg/dL (8.5-10.1); Chloride, Blood 111.0 mmol/L (98-108); Creatinine, Blood 0.5 mg/dL (0.40-1.00); Glucose, Blood 183.0 mg/dL (70-99); Potassium, Blood 3.9 mmol/L (3.5-5.5); Sodium, Blood 134.0 mmol/L (136-145)
[2025-05-23 15:02] LABS: Campylobacter Sp Not Detected (NOT DETECT); E. Coli O157 Not Detected (NOT DETECT); Enteroaggregative E. coli-EAEC Not Detected (NOT DETECT); Enteropathogenic E. coli-EPEC Not Detected (NOT DETECT); Enterotoxigenic E. coli-ETEC Not Detected (NOT DETECT); Salmonella Sp Not Detected (NOT DETECT); Shiga Toxin-prod E. coli-STEC Not Detected (NOT DETECT); Shigella/Enteroin E. coli-EIEC Not Detected (NOT DETECT); Vibrio Sp Not Detected (NOT DETECT)
[2025-05-23] MEDS ORDERED: INSULIN GL100 UNIT/2 SC (15:04)
[2025-05-23] MEDS ORDERED: Nicoderm Cq1 EAC1 TOP (15:05)
== END 2025-05-23 16:00 | disposition home or self-care (01) | DRG 639 ==
LOC: ER 13:29 → ICUE 18:07
PROVIDERS: Internal Medicine; Nurse Practitioner Acute Care; Student in an Organized Health Care Education/Training Program; ADMIT Student in an Organized Health Care Education/Training Program
DX: E10.10 Type 1 diabetes mellitus with ketoacidosis without coma (principal); F17.290 Nicotine dependence, other tobacco product, uncomplicated; F12.90 Cannabis use, unspecified, uncomplicated; E87.5 Hyperkalemia; E10.65 Type 1 diabetes mellitus with hyperglycemia; R10.31 Right lower quadrant pain; A08.4 Viral intestinal infection, unspecified; Z79.4 Long term (current) use of insulin; Z79.899 Other long term (current) drug therapy
CPT/HCPCS: 36415; 74177; 80048; 80053; 81001; 81025; 82010; 82803; 82947; 83690; 83735; 84132; 85025; 85027; 87507; 96361; 96374-59; 99285-25; A9270; J1650; J1815; J1885; J2405; J2765; J7030; J7042; J7050; J7120; Q9967

== ENCOUNTER → 2025-05-29 | Outpatient (CLI) | payer OTHER ==
[~2025-05-29] MED LIST changes: +INSULIN GL100 UNIT/2 SC; +Nicoderm Cq1 EAC1 TOP
== END ==
LOC: LAB 10:15 → LAB SHORT 10:15
DX: R30.0 Dysuria (principal)
CPT/HCPCS: 87086